=== PATIENT | female | born 1975 | race Caucasian/White ===

== ENCOUNTER → 2019-07-25 13:17 | Outpatient (CLI) | payer OTHER, SELFPAY ==
[2019-07-25 13:44] LABS: Add Manual Diff / Slide Review NO; Basophils Absolute Auto 0 /uL (0-100); Basophils Percent Auto 0.5 % (0-2); Eosinophils Absolute Auto 100 /uL (0-450); Eosinophils Percent Auto 1.6 % (2-4); Hematocrit 38.8 % (36-46); Hemoglobin 12.9 g/dL (12.0-16.0); Lymphocytes Absolute Auto 1800 /uL (1100-4500); Lymphocytes Percent Auto 29.1 % (25-40); Mean Corpuscular HGB Conc 33.4 % (30-36); Mean Corpuscular Hemoglobin 30.3 PG (26-34); Mean Corpuscular Volume 90.9 fL (80-100); Monocytes Absolute Auto 500 /uL (0-900); Monocytes Percent Auto 7.6 % (3-14); Neutrophils Absolute Auto 3900 /uL (1500-7000); Neutrophils Percent Auto 61.2 % (50-75); Platelet Count 187 X10^3/uL (150-400); Red Blood Cell Count 4.26 X10^6/uL (4.0-5.2); Red Cell Distribution Width 13.2 % (11.6-14.8); White Blood Cell Count 6.3 X10^3/uL (4.5-11.0)
[2019-07-25 14:23] LABS: Alanine Aminotransferase 24 IU/L (<35); Albumin 4.1 g/dL (3.5-5.0); Albumin Globulin Ratio 1.5 (1.0-2.8); Alkaline Phosphatase 44 U/L (38-126); Aspartate Aminotransferase 34 IU/L (14-36); BUN Creatinine Ratio 28.6 (6-22); Bilirubin Total 0.3 mg/dL (0.2-1.3); Blood Urea Nitrogen 20 mg/dL (7-17); Calcium 9.5 mg/dL (8.4-10.2); Carbon Dioxide 28 mmol/L (22-32); Chloride 104 mmol/L (98-107); Estimated Glomerular Filt Rate > 60.0 mL/min (>60); Globulin 2.8 g/dL (1.7-4.1); Glucose 104 mg/dL (70-100); HEMOLYSIS < 15 (0-50); Potassium 3.7 mmol/L (3.4-5.1); Sodium 139 mmol/L (137-145); Total Protein 6.9 g/dL (6.3-8.2)
== END ==
PROVIDERS: PCP Family Medicine
DX: Z01.818 Encounter for other preprocedural examination (principal)
CPT/HCPCS: 36415; 80053; 85025

== ENCOUNTER → 2020-10-01 14:17 | Outpatient (CLI) | payer OTHER, SELFPAY ==
[2020-10-01 15:53] LABS: COVID19 -Nasal RAPID Negative (Negative)
== END ==
PROVIDERS: PCP Family Medicine; Visit Provider Physician Assistant
DX: Z20.822 Contact with and (suspected) exposure to COVID-19 (principal)
CPT/HCPCS: 87635

== ENCOUNTER → 2020-12-10 18:01 | Outpatient (CLI) | payer OTHER, SELFPAY ==
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
== END ==
PROVIDERS: PCP Family Medicine; Referring Provider Family Medicine; Visit Provider Family Medicine
DX: M79.671 Pain in right foot (principal); S99.921A Unspecified injury of right foot, initial encounter; X58.XXXA Exposure to other specified factors, initial encounter
CPT/HCPCS: 73630

== ENCOUNTER → 2020-12-20 11:22 | Outpatient (CLI) | payer OTHER, SELFPAY ==
[2020-12-20] MEDS: COVID-19 VACC #1, MRNA(MOD) 100 MCG/0.5 ML VIAL IM (12:02)
== END ==
PROVIDERS: PCP Family Medicine; Visit Provider Internal Medicine
DX: Z23 Encounter for immunization (principal)
CPT/HCPCS: 0011A; 91301

== ENCOUNTER → 2020-12-30 12:18 | Outpatient (CLI) | payer OTHER, SELFPAY ==
[2020-12-30 13:32] LABS: COVID19 -Nasal RAPID Negative (Negative)
== END ==
PROVIDERS: PCP Family Medicine; Visit Provider Physician Assistant
DX: J02.9 Acute pharyngitis, unspecified (principal); R50.9 Fever, unspecified
CPT/HCPCS: 87635

== ENCOUNTER → 2021-01-23 15:28 | Outpatient (CLI) | payer OTHER, SELFPAY ==
[2021-01-23] MEDS: COVID-19 VACC #2, MRNA(MOD) 100 MCG/0.5 ML VIAL IM (15:35)
== END ==
PROVIDERS: PCP Family Medicine; Visit Provider Internal Medicine
DX: Z23 Encounter for immunization (principal)
CPT/HCPCS: 0012A; 91301

== ENCOUNTER 2021-02-08 16:20 | Emergency (ER) | payer OTHER, SELFPAY ==
[2021-02-08 16:24] VITALS: BP 134/79; PULSE 89; RESP 15; TEMP 36.8; O2SAT 98; BMI 26.6
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
[2021-02-08] MEDS: TET,DIPH,PERTUSS(ACELL),VAC/PF 0.5 ML SYRINGE IM (16:59)
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
[2021-02-08] MEDS: DOXYCYCLINE HYCLATE 100 MG TABLET PO (18:09)
[2021-02-08] MEDS: BACITRACIN OINT 0.9 GM PCKT 1 APPLIC TOP (18:09)
== END 2021-02-08 18:20 | disposition home or self-care (01) ==
PROVIDERS: Emergency Provider Emergency Medicine; PCP Family Medicine
DX: S81.032A Puncture wound without foreign body, left knee, initial encounter (principal); S80.211A Abrasion, right knee, initial encounter; V86.56XA Driver of dirt bike or motor/cross bike injured in nontraffic accident, initial encounter; Z23 Encounter for immunization
CPT/HCPCS: 73562; 90471; 99283; 99284; 90715

== ENCOUNTER → 2022-04-04 13:53 | Outpatient (CLI) | payer OTHER, SELFPAY ==
--- NOTE | 2022-04-04 13:56 | DI.RAD.S_ITS ---
PROCEDURE: XR CHEST 2V INDICATIONS: palpitations TECHNIQUE: 2 views of the chest were acquired. COMPARISON: None. FINDINGS: Surgical changes and devices: Bilateral breast implants noted Lungs and pleura: Lungs are clear. No pleural effusions or pneumothorax. Mediastinum: Mediastinal contours are normal. Heart size is normal. Bones and chest wall: No suspicious bony abnormalities. Soft tissues appear unremarkable. IMPRESSION: Normal two view chest x-ray Approved by: Anival Champagne M.D. on 04/04/2022 at 17:42
== END ==
PROVIDERS: Family Provider Family Medicine; PCP Family Medicine; Referring Provider Family Medicine; Visit Provider Family Medicine
DX: R00.2 Palpitations (principal)
CPT/HCPCS: 71046

== ENCOUNTER 2023-09-28 12:11 | Emergency (ER) | payer OTHER, SELFPAY ==
[2023-09-28 12:14] VITALS: BP 127/96; PULSE 87; RESP 18; TEMP 37.1; O2SAT 100; BMI 27.4
--- NOTE | 2023-09-28 12:23 | DI.RAD.S_ITS ---
PROCEDURE: XR CHEST 1V INDICATIONS: chest pain TECHNIQUE: One view of the chest was acquired. COMPARISON: [facility], CR, XR CHEST 2V, 04/04/2022, 13:53. FINDINGS: Surgical changes and devices: None. Lungs and pleura: Lungs are clear. No pleural effusions or pneumothorax. Mediastinum: Mediastinal contours appear normal. Heart size is normal. Bones and chest wall: No suspicious bony lesions. Overlying soft tissues appear unremarkable. IMPRESSION: No acute cardiopulmonary abnormality is seen. Dictated by: Eva Pak M.D. on 09/28/2023 at 13:00 Approved by: Eva Pak M.D. on 09/28/2023 at 13:00
[2023-09-28 13:28] LABS: Add Manual Diff / Slide Review NO; Basophils Absolute Auto 0 /uL (0-100); Basophils Percent Auto 0.4 % (0-2); Eosinophils Absolute Auto 100 /uL (0-450); Eosinophils Percent Auto 2.1 % (2-4); Hematocrit 40.1 % (36-46); Hemoglobin 13.6 g/dL (12.0-16.0); Lymphocytes Absolute Auto 1500 /uL (1100-4500); Lymphocytes Percent Auto 26.4 % (25-40); Mean Corpuscular HGB Conc 33.9 % (30-36); Mean Corpuscular Hemoglobin 30.3 PG (26-34); Mean Corpuscular Volume 89.5 fL (80-100); Monocytes Absolute Auto 400 /uL (0-900); Monocytes Percent Auto 7.3 % (3-14); Neutrophils Absolute Auto 3700 /uL (1500-7000); Neutrophils Percent Auto 63.8 % (50-75); Platelet Count 214 X10^3/uL (150-400); Red Blood Cell Count 4.48 X10^6/uL (4.0-5.2); Red Cell Distribution Width 13.4 % (11.6-14.8); White Blood Cell Count 5.8 X10^3/uL (4.5-11.0)
[2023-09-28 13:38] LABS: Alanine Aminotransferase 21 IU/L (<35); Albumin Globulin Ratio 1.2 (1.0-2.8); Alkaline Phosphatase 55 U/L (38-126); Aspartate Aminotransferase 30 IU/L (14-36); BUN Creatinine Ratio 21.3 (6-22); Bilirubin Total 0.8 mg/dL (0.2-1.3); Blood Urea Nitrogen 17 mg/dL (7-17); Calcium 9.3 mg/dL (8.4-10.2); Carbon Dioxide 25 mmol/L (22-32); Chloride 105 mmol/L (98-107); Creatine Kinase 65 U/L (30-135); Estimated Glomerular Filt Rate > 60 mL/min (>60); Globulin 3.3 g/dL (1.7-4.1); Glucose 85 mg/dL (70-100); HEMOLYSIS 15 (0-50); Lipase 129 U/L (23-300); Potassium 3.6 mmol/L (3.4-5.1); Sodium 137 mmol/L (137-145); Total Protein 7.3 g/dL (6.3-8.2)
[2023-09-28 13:48] LABS: INR 1.2 (0.9-1.3); Prothrombin Time 13.5 SECONDS (9.4-12.5)
[2023-09-28 13:49] LABS: Troponin I < 0.012 ng/mL (0.01-0.034)
[2023-09-28 13:51] LABS: PTT Partial Thromboplastin Tim 30 SECONDS (25.1-36.5)
[2023-09-28 15:50] VITALS: BP 108/65; PULSE 78; RESP 20; O2SAT 100
[2023-09-28 16:20] VITALS: PULSE 73; O2SAT 100
[2023-09-28 16:30] VITALS: PULSE 76; O2SAT 99
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
[2023-09-28 16:46] VITALS: BP 117/75; PULSE 72; RESP 24; O2SAT 100
== END 2023-09-28 16:51 | disposition home or self-care (01) ==
PROVIDERS: Emergency Provider Emergency Medicine; Family Provider Family Medicine; PCP Family Medicine
DX: R07.89 Other chest pain (principal); R00.2 Palpitations
CPT/HCPCS: 36415; 71045; 80053; 82550; 83690; 83735; 84484; 85025; 85610; 85730; 93005; 93010; 99283; 99284

== ENCOUNTER → 2023-11-02 15:20 | Outpatient (CLI) | payer OTHER, SELFPAY ==
--- NOTE | 2023-11-02 | DI.NM.S_ITS ---
PROCEDURE: NM EXERCISE TREADMILL NON NUC COMPARISON: None. INDICATIONS: Other chest pain FINDINGS: The patient exercised for 12 minutes and 0 seconds, reaching 84% of maximum predicted heart rate. Appropriate BP response to exercise. No ST changes, no angina, and no ectopy during exercise or recovery. IMPRESSION: Low risk, normal treadmill ECG only stress test with excellent exercise tolerance (12.8METs, ANDRZEJ -48%). Dictated by: Maribel Walsh MD on 11/02/2023 at 16:37 Approved by: Maribel Walsh MD on 11/02/2023 at 16:43
== END ==
LOC: RAD 15:20
PROVIDERS: Family Provider Family Medicine; PCP Family Medicine; Referring Provider Family Medicine; Visit Provider Family Medicine
DX: R07.89 Other chest pain (principal); Z82.49 Family history of ischemic heart disease and other diseases of the circulatory system
CPT/HCPCS: 93016; 93017; 93018